=== PATIENT | male | born 1980 | race Caucasian/White ===

== ENCOUNTER → 2016-04-27 | Outpatient (CLI) | payer BC ==
[~2016-04-27] VITALS: Ht 182.9 cm; Wt 119.3 kg
[~2016-04-27] MED LIST: FLEXERIL10 MG PO; IBUPROFEN800 MG PO; INDERAL LA160 MG PO; INDERAL10 MG; NOHOMEMEDS; QUESTRAN PACKET4 GM PO; ULTRAM50 MG PO; ZOFRAN ODT4 MG PO
== END | disposition home or self-care (01) ==
LOC: AMB 13:29
PROC: 0DBE8ZX Excision of Large Intestine, Via Natural or Artificial Opening Endoscopic, Diagnostic (ICD-10-PCS; principal; 2016-04-27)
DX: R10.31 Right lower quadrant pain (principal); R19.7 Diarrhea, unspecified; I10 Essential (primary) hypertension; Z82.49 Family history of ischemic heart disease and other diseases of the circulatory system; Z82.0 Family history of epilepsy and other diseases of the nervous system; Z83.49 Family history of other endocrine, nutritional and metabolic diseases
CPT/HCPCS: 88305; 93005; B4087; J2250; J3010